=== PATIENT | male | born 1935 | race Caucasian/White ===

== ENCOUNTER 2021-04-11 08:00 | Day surgery (SDC) | payer MEDICARE ==
[2021-04-05 13:40] LABS: Hematocrit 39.9 % (35.5-45.6); Mean Corpuscular HGB Conc 33 % (32-34); Mean Corpuscular Volume 96 fl (84-94); Platelet Count 151 K/mm3 (140-440); Red Blood Count 4.17 M/mm3 (3.65-5.03); Red Cell Distribution Width 14.1 % (13.2-15.2)
[2021-04-05 14:11] LABS: Alanine Aminotransferase 20 units/L (7-56); Albumin 4.1 g/dL (3.9-5); BUN/Creatinine Ratio 11; Blood Urea Nitrogen 12 mg/dL (9-20); Calcium 9.1 mg/dL (8.4-10.2); Hemolysis Index 6
--- NOTE | 2021-04-05 14:40 | Anesthesia Consultation ---
Anesthesia Consult and Med Hx Date of service: 04/11/21 - Airway Anesthetic Teeth Evaluation: Good, Caps, Bridges ROM Head & Neck: Adequate Mental/Hyoid Distance: Adequate Mallampati Class: Class III Intubation Access Assessment: Possibly Difficult - Pulmonary Exam CTA: Yes - Cardiac Exam Cardiac Exam: RRR - Pre-Operative Health Status ASA Pre-Surgery Classification: ASA2 Proposed Anesthetic Plan: General - Pulmonary Hx Smoking: Yes (1 cigar per day) Hx Respiratory Symptoms: No Hx Sleep Apnea: No (HIGH RISK ON PRESCREEN) - Cardiovascular System Hx Hypertension: Yes Hx Heart Attack/AMI: No Hx Percutaneous Transluminal Coronary Angioplasty (PTCA): No Hx Cardia Arrhythmia: No (hx PVCs especially w/ caffeine per patient) Hx Pacemaker: No Hx Internal Defibrillator: No - Central Nervous System CVA: No - Endocrine Hx Renal Disease: No Hx Liver Disease: No Hx Insulin Dependent Diabetes: No Hx Non-Insulin Dependent Diabetes: No Hx Thyroid Disease: No - Other Systems Hx Obesity: No - Additional Comments Anesthesia Medical History Comments: No hx anesthetic complications. Take ASA for primary prevention; held 1 wk. Reports cardiac work up within the last year for dizziness (now resolved) which was normal. Records requested.
[~2021-04-11 08:00] MED LIST: LACTATED RINGERS 1,000 ML IV SCH
[2021-04-11] MEDS ORDERED: HYDROmorphone 1 MG/1 ML INJ IV PRN (08:33)
[2021-04-11] MEDS ORDERED: ONDANSETRON 4 MG/2 ML INJ IV PRN (08:33)
--- NOTE | 2021-04-11 08:34 | Anesthesia Day of Surgery ---
Anesthesia Day of Surgery - Day of Surgery Patient Examined: Yes Patient H&P Reviewed: Yes Patient is NPO: Yes
[2021-04-11] MEDS ORDERED: ceFAZolin/Water 2 GM/20 ML 2 GM/20 ML SYRINGE IV ONE (09:13)
[2021-04-11] MEDS ORDERED: HYDROmorphone 1 MG/1 ML INJ ONE (09:18)
[2021-04-11] MEDS ORDERED: propofoL 200 MG/20 ML VIAL IV ONE (09:18)
[2021-04-11] MEDS ORDERED: LIDOCAINE MPF (2%) 20 MG/1 ML VIAL 5 ML ONE (09:18)
[2021-04-11] MEDS ORDERED: ceFAZolin/Water 2 GM/20 ML 2 GM/20 ML SYRINGE IV NR (10:00)
[2021-04-11] MEDS ORDERED: SODIUM CHLORIDE 0.9% IRRIG SOLN 2000 ML IR ONE (10:33)
[2021-04-11] MEDS ORDERED: WATER FOR IRRIG STERILE 1,500 ML BOTTLE IR ONE (10:40)
[2021-04-11] MEDS ORDERED: GLYCOPYRROLATE 0.4 MG/2 ML INJ ONE (10:48)
[2021-04-11] MEDS ORDERED: ONDANSETRON 4 MG/2 ML INJ ONE (11:32)
[2021-04-11] MEDS: HYDROmorphone 1 MG/1 ML INJ IV PRN ×2 (11:50→12:00)
--- NOTE | 2021-04-11 12:18 | Operative Report ---
DATE OF SURGERY: 04/11/2021 TIME OF PROCEDURE: 04/11/2021 at approximately 10:15 a.m. PREOPERATIVE DIAGNOSES: Benign prostatic hypertrophy with worsening lower urinary tract symptoms refractory to medical therapy. POSTOPERATIVE DIAGNOSES: Benign prostatic hypertrophy with worsening lower urinary tract symptoms refractory to medical therapy. PROCEDURE: TURP/TUVP. ATTENDING: Pernell Corona MD ASSISTANTS: None. ANESTHESIA: General. ESTIMATED BLOOD LOSS: 25 mL. DRAINS: A 22-[place] 3-way Jenkins catheter. SPECIMENS: TUR chips. COMPLICATIONS: None. INDICATIONS FOR PROCEDURE: The patient is an 86-year-old man in excellent health, who presents with worsening LUTS due to BPH despite medical therapy. After discussion of the risks, benefits and alternatives, the patient wished to proceed with outlet reduction. Due to the size of his prostate, I felt that a traditional TURP/vaporization would be the best suited for the patient for nursing home, durable results. DESCRIPTION OF PROCEDURE IN DETAIL: After induction of suitable anesthesia and proper positioning and preparation in the dorsal lithotomy position, a resectoscope was used to enter the bladder under direct visualization. There were no bladder or urethral mucosal lesions. The patient's ureteral orifices were in their normal orthotopic positions. The patient's outlet was obstructive. His obstruction stemmed from two things: A high bladder neck with some median lobe tissue, and #2, a large protruding right lateral lobe. I began the resection/vaporization by incising the bladder neck at the 5 and 7 o'clock positions. These incisions were carried down to the circular fibers of the bladder neck. The remaining adenomatous tissue between the incisions was then resected/vaporized. The bladder neck was smooth and was no longer high. Attention was then turned to the right lateral lobe. Using a combination of vaporization and resection, this lobe was reduced, so that it was no longer obstructing. I spent a long period of time ensuring hemostasis using both the loop electrocautery and the button electrode. The bladder was emptied multiple times and the outlet was copiously fulgurated to ensure that there was good hemostasis, which there was. All the TUR chips were removed. Again, I was very diligent with assessing the prostatic fossa for hemostasis. After reduction was complete, the button electrode was used exclusively to ensure that all of the oozing areas were hemostatic, which they were. Once complete, the bladder was emptied and the resectoscope was removed. A Jenkins catheter was placed. It was attached to continuous bladder irrigation, which will continue only in the recovery room. The patient will be discharged home with the Jenkins catheter in place. The patient was awakened from anesthesia and transported to the recovery room in stable condition. He tolerated the procedure well. He will be taught how to remove the catheter at home. TID: [id number] RECEIPT: [id number] SHAHIDA/DEAN
[2021-04-11 14:41] VITALS: BP 153/69
--- NOTE | 2021-04-11 15:40 | Post Anesthesia Evaluation ---
- Post Anesthesia Evaluation Patient Participated: Yes Airway Patent: Yes Stable Respiratory Function: Yes Nausea/Vomiting: No Temp > 96.8F: Yes Pain Manageable: Yes Adequeate Hydration: Yes Anesthesia Complications: No Block Receding Appropriately: Not Applicable Patient on Ventilator: No
== END 2021-04-11 15:25 | disposition home or self-care (01) ==
LOC: OR 08:00
PROVIDERS: ATTEND Urology
DX: N40.1 Benign prostatic hyperplasia with lower urinary tract symptoms (principal); E78.00 Pure hypercholesterolemia, unspecified; I10 Essential (primary) hypertension; K21.9 Gastro-esophageal reflux disease without esophagitis; F17.210 Nicotine dependence, cigarettes, uncomplicated; M19.90 Unspecified osteoarthritis, unspecified site; Z20.822 Contact with and (suspected) exposure to COVID-19; Z79.899 Other long term (current) drug therapy; Z91.010 Allergy to peanuts; Z88.8 Allergy status to other drugs, medicaments and biological substances; Z79.82 Long term (current) use of aspirin; Z72.89 Other problems related to lifestyle; Z98.890 Other specified postprocedural states
CPT/HCPCS: 36415; 52601; 80053; 85027; 86850; 86900; 86901; 88305; J0690; J1170; J1815; J2405; J2704; J3490; J7120; U0003